=== PATIENT | female | born 1990 | race Caucasian/White ===

== ENCOUNTER 2016-11-12 18:35 | Emergency (ER) | payer OTHER ==
[~2016-11-12] VITALS: Ht 165.1 cm; Wt 63.5 kg
[2016-11-12] MEDS ORDERED: METRONIDAZOLE500 M1 PO (19:17)
[2016-11-12] MEDS ORDERED: NITROFURANTOIN100 M6 PO (19:17)
[2016-11-12] MEDS ORDERED: ALTAVERA-28 TA1 EACH PO (19:18)
[2016-11-12 19:53] LABS: ABSOLUTE BASOPHIL COUNT 0 /CUMM (0.0-0.2); ABSOLUTE EOSINOPHIL COUNT 0 /CUMM (0.0-0.7); ABSOLUTE GRANULOCYTE CT 4.7 /CUMM (1.4-6.5); ABSOLUTE LYMPH COUNT 0.9 /CUMM (1.2-3.4); ABSOLUTE MONOCYTE COUNT 0.6 /CUMM (0.10-0.60); BASOPHIL % 0.7 % (0.0-2.0); EOSINOPHIL % 0.1 % (0-5); GRANULOCYTE % 75.6 % (42.2-75.2); MEAN CORPUSCULAR HGB 29.9 PG (27.0-31.0); MEAN CORPUSCULAR HGB CONC 33.7 G/DL (33.0-37.0); MEAN CORPUSCULAR VOLUME 88.9 FL (81.0-99.0); MEAN PLATELET VOLUME 8.6 FL (7.4-10.4); PLATELET COUNT 186 /CUMM (130-400); RBC DISTRIBUTION WIDTH 13.1 % (11.5-14.5); RED BLOOD CELL CT 4.84 /CUMM (4.20-5.40); WHITE BLOOD CELL COUNT 6.3 /CUMM (4.8-10.8)
--- NOTE | 2016-11-12 20:10 | ED GI/GU/ABDOMINAL COMPLAINT ---
History of Present Illness General Chief Complaint: General Adult Stated Complaint: HEADACHE,UTI SYMPTOMS,BACK PAIN,NAUSEA Source: patient Exam Limitations: no limitations Vital Signs & Intake/Output Vital Signs & Intake/Output Vital Signs Date Time Temp Pulse Resp B/P Pulse O2 O2 Flow FiO2 Ox Delivery Rate 11/12 2227 97.8 78 18 106/61 99 Room Air 11/12 1842 98.3 97 20 112/71 99 Room Air Allergies Coded Allergies: No Known Allergies (11/12/16) Triage Note: TRIAGE: PT TO ER C/C HEADACHE, SYMPTOMS OF UTI, BACK PAIN AND NAUSEA. ONSET WITH BURNING URINARY PAIN SUNDAY. SEEN AT URGENT CARE SUNDAY. HAD URINE SPECIMEN DONE AND BLOOD TEST DONE. WAS STARTED SUNDAY ON METRONIDAZOLE BY PMD WHOM SHE SPOKE WITH ON THE PHONE REGARDING S/S. WAS STARTED ON MACROBID YESTERDAY EVENING AFTER BEING SEEN AT URGENT CARE. TAKING MACROBID PRESCRIBED. SYMPTOMS HAVE GOTTEN "A LITTLE BIT WORSE". Triage Nurses Notes Reviewed? yes ? N Is pt currently ? No HPI: This patient is a 26-year-old female who presented to the emergency department today for multiple complaints. The patient reported that on she started to notice some, "mild stinging," with urination. She denied any blood in the urine, urinary urgency, or urinary frequency. The symptoms started to get worse on Sunday. She called her primary care physician who prescribed her Flagyl. The patient reported that she then went to an urgent care center and they prescribed her a different antibiotic for UTI. The patient reported that her symptoms seem to be getting worse and now include a headache, lower back pain, and nausea. The patient denied any abdominal pain, vomiting, chest pain, difficulty breathing, constipation, or diarrhea. No fevers or chills. (NISH LOVELACE,ESTRELLA) Reconcile Medications Acyclovir 400 MG TABLET 1 TAB PO TID HSV Levonorgestrel-Ethin Estradiol (Altavera-28 Tablet) 0.15 MG-30 MCG TABLET 1 TAB PO DAILY CONTROL (Reported) Metronidazole 500 MG TABLET 1 TAB PO BID ANTIBIOTIC (Reported) Nitrofurantoin Monohyd/M-Cryst (Nitrofurantoin Cross-Mcr 100 MG) 100 MG CAPSULE 1 CAP PO BID ANTIBIOTIC (Reported) Phenazopyridine HCl (Pyridium) 200 MG TABLET 1 TAB PO TID PRN DYSURIA Sulfamethoxazole/Trimethoprim (Bactrim Ds Tablet) 800 MG-160 MG TABLET 1 TAB PO BID UTI (GREGORIO REEDER,ANNEL Pressley) Past History Travel History Traveled to [place] past 21 day No Medical History Any Pertinent Medical History? see below for history Neurological: NONE EENT: NONE Cardiovascular: NONE Respiratory: NONE Gastrointestinal: NONE Hepatic: NONE Renal: NONE Musculoskeletal: NONE Psychiatric: NONE Endocrine: NONE Blood Disorders: NONE Cancer(s): NONE DATA KEYER/Reproductive: NONE Surgical History Surgical History: non-contributory Psychosocial History What is your primary language Swedish Tobacco Use: Never used ETOH Use: occasional use Illicit Drug Use: denies illicit drug use Family History Hx Contributory? No (ESTRELLA MOCK PA-C) Review of Systems Review of Systems Constitutional: Reports: no symptoms. EENTM: Reports: no symptoms. Respiratory: Reports: no symptoms. Cardiovascular: Reports: no symptoms. GI: Reports: see HPI. Genitourinary: Reports: see HPI. Musculoskeletal: Reports: see HPI. Skin: Reports: no symptoms. Neurological/Psychological: Reports: no symptoms. All Other Systems: Reviewed and Negative (ESTRELLA MOCK PA-C) Physical Exam Physical Exam Gastrointestinal: normal bowel sounds, soft, non-tender, no organomegaly, NO REBOUND OR GUARDING. nO PERITONEAL SIGNS. nONDISTENDED Comments: Well-developed well-nourished person in no acute distress HEENT: Normal EENT exam, head normocephalic, moist mucous membranes Neck: Supple. Full range of motion Back: No CVA tenderness. Normal gait. Normal inspection. No midline tenderness Cardiovascular: Regular rate and rhythm with no murmurs Respiratory: No respiratory distress. Breath sounds clear to auscultation bilaterally Extremity: Normal and equal pulses. Neuro: Alert oriented x3, cranial nerves II through XII grossly intact. Skin: No appreciable rash on exposed skin, skin is warm and dry. Psych: Mood and affect is normal Core Measures ACS in differential dx? No Severe Sepsis Present: No Septic Shock Present: No (ESTRELLA MOCK PA-C) Progress Differential Diagnosis: AMI, appendicitis, ectopic , endometritis, ischemic bowel, intrauterine , kidney stone, ovarian cyst, ovarian torsion, PID/cervicitis, threatened AB, UTI/pyelo Plan of Care: Orders Procedure Date/time Status TRICHOMONAS 11/12 2049 Complete POTASSIUM HYDROXIDE (YEHUDA) 11/12 2049 Complete GENITAL CULTURE 11/12 2049 Active CHLAMYDIA-GC DNA PROBE 11/12 2049 Active RAPID VIRAL INFLUENZA A 11/12 1915 Complete CULTURE,URINE 11/12 1915 Active LIPASE 11/12 1915 Complete COMPREHENSIVE METABOLIC PANEL 11/12 1915 Complete CBC WITHOUT DIFFERENTIAL 11/12 1915 Complete AMYLASE 11/12 1915 Complete URINE 11/12 1901 Complete URINALYSIS 11/12 1901 Complete Laboratory Tests 11/12/16 2019: Anion Gap 6, Estimated GFR > 60, BUN/Creatinine Ratio 9.0, Glucose 90, Calcium 8.2 L, Total Bilirubin 0.5, AST 22, ALT 24, Alkaline Phosphatase 40, Total Protein 5.9 L, Albumin 3.2 L, Globulin 2.7, Albumin/Globulin Ratio 1.2, Amylase 47, Lipase 125, Urine Color YEL, Urine Clarity HAZY H, Urine pH 6.0, Ur Specific [place] 1.025, Urine Protein TRACE H, Urine Ketones TRACE H, Urine Nitrite NEG, Urine Bilirubin NEG, Urine Urobilinogen 0.2, Ur Leukocyte Esterase TRACE H, Ur Microscopic SEDIMENT EXAMINED, Urine RBC 10-15 H, Urine WBC 15-25 H, Ur Epithelial Cells MANY H, Urine Mucus PACKD H, Urine Hemoglobin SMALL H, Urine Glucose NEG, Urine Test NEGATIVE 11/12/161934: CBC w Diff NO MAN DIFF REQ, RBC 4.84, MCV 88.9, MCH 29.9, RDW 13.1, MPV 8.6, Gran % 75.6 H, Lymphocytes % 14.5 L, Monocytes % 9.1, Eosinophils % 0.1, Basophils % 0.7, Absolute Granulocytes 4.7, Absolute Lymphocytes 0.9 L, Absolute Monocytes 0.6, Absolute Eosinophils 0, Absolute Basophils 0, PUBS MCHC 33.7 Microbiology 11/12 2144 GENITAL: GC DNA Probe - RECD 11/12 2144 GENITAL: Chlamydia DNA Probe (NUSRAT) - RECD 11/12 2144 GENITAL: YEHUDA Preparation - COMP 11/12 2144 GENITAL: Trichomonas Preparation - COMP 11/12 2144 GENITAL: Genital Culture - RECD 11/12 2018 URINE ROUT: Urine Culture - RECD Diagnostic Imaging: Viewed by Me: CT Scan. Discussed w/RAD: CT Scan. Radiology Impression: PATIENT: JESS HIDALGO PRESENT AGE: 26 PATIENT ACCOUNT NO: [id number] : 89 LOCATION: [facility], [place] ORDERING PHYSICIAN: ESTRELLA MOCK PA-C SERVICE DATE: 11/12/16 EXAM TYPE: CAT - CT ABD & PELVIS W/O IV CONTRAS EXAMINATION: CT ABDOMEN AND PELVIS WITHOUT CONTRAST CLINICAL INFORMATION: Flank pain, dysuria COMPARISON: None. TECHNIQUE: Multidetector volumetric imaging was performed from the superior aspect of the liver through the pubic symphysis. Sagittal and coronal reformatted images were obtained on the technologist's workstation. DLP: 281.49 mGy-cm. FINDINGS: LUNG BASES: The visualized lung bases are unremarkable. LIVER, GALLBLADDER, AND BILIARY TREE: The liver is normal in size, shape, and attenuation. No biliary ductal dilatation is present. The gallbladder is contracted. PANCREAS: Unremarkable. SPLEEN: Unremarkable. ADRENAL GLANDS: Unremarkable. KIDNEYS AND URETERS: The kidneys are normal in size, shape, and attenuation. No hydronephrosis, hydroureter, or calculi seen. No perinephric stranding. BLADDER: The bladder is partially full. No bladder stones seen. GASTROINTESTINAL TRACT: The small and large bowel are unremarkable. The appendix is not clearly seen. ABDOMINAL WALL: No significant hernia is appreciated. VASCULAR: Unremarkable. PELVIC VISCERA: A vaginal tampon is in place. The noncontrast CT images of uterus and adnexa are unremarkable. OSSEOUS STRUCTURES: Unremarkable. IMPRESSION: No urinary stones seen. No hydronephrosis. DICTATED BY : JACKSON TRIMBLE MD DATE/TIME DICTATED:11/12/162141 HOME HEALTH CAREGIVER: DENISSE DATE/TIME TRANSCRIBED:11/12/162141 CONFIDENTIAL, DO NOT COPY WITHOUT APPROPRIATE AUTHORIZATION. <Electronically signed in Other Vendor System> SIGNED BY: JACKSON TRIMBLE MD 11/12/162157 Initial ED EKG: none Comments: 11/12/2016 8:51:01 PM: I was at the patient's bedside to update her on her laboratory studies. Definite urinary tract infection based on urinalysis. There are also 10-15 red blood cells. Based on this patient's associated flank pain, I recommended getting a CT scan of the abdomen and pelvis with no contrast to evaluate for a kidney stone. However, I also, the patient on the results of radiation. She would like to go ahead with the CT scan. The patient is now voicing a secondary complaint of bumps and burning in the vaginal region as well as watery discharge and spotting. The patient does not think that she could have been exposed to an STD, but reported that she is sexually active and would like to be tested. The patient does have a follow-up appointment with her OB/ DATA KEYER on Sunday. 11/12/2016 9:50:06 PM: I performed a vaginal speculum examination. External genitalia with multiple erythematous, raised lesions with some overlying excoriations and vesicles. Vaginal speculum examination revealed clear discharge which is thin and not adherent to the aldrich. [place] mucosa. Multiple lesions surrounding the cervical os which white. Mild amount of bleeding from the cervical os. Cervical os is closed. No cervical motion tenderness. No adnexal masses appreciated. (ESTRELLA MOCK PA-C) Departure Departure Disposition: HOME OR SELF CARE Condition: Stable Clinical Impression Primary Impression: UTI (urinary tract infection) Qualifiers: Urinary tract infection type: site unspecified Hematuria presence: with hematuria Qualified Codes: N39.0 - Urinary tract infection, site not specified; R31.9 - Hematuria, unspecified Referrals: SANDRA REEDER,MARY JO Campoverde (PCP/Family) Additional Instructions: Take Bactrim as prescribed for urinary tract infection. Take this for its full duration. Take Pyridium as prescribed for urinary burning. Please call your OB /DATA KEYER tomorrow morning to schedule a follow-up appointment. Please be sure to stay hydrated and rest. [id number] Motrin or Tylenol for headaches. Return to the emergency department for any worsening symptoms or concerns. Departure Forms: Customer Survey General Discharge Information Prescriptions: Current Visit Scripts Phenazopyridine HCl (Pyridium) 1 TAB PO TID PRN DYSURIA #9 TAB Sulfamethoxazole/Trimethoprim (Bactrim Ds Tablet) 1 TAB PO BID #14 TAB Acyclovir 1 TAB PO TID #21 TAB (ESTRELLA MOCK PA-C) PA/CLOTH DRIER Co-Sign Statement Statement: ED Attending supervision documentation- [] I saw and evaluated the patient. I have also reviewed all the pertinent lab results and diagnostic results. I agree with the findings and the plan of care as documented in the PA's/CLOTH DRIER's documentation. [X] I have reviewed the ED Record and agree with the PA's/CLOTH DRIER's documentation. [] Additions or exceptions (if any) to the PAs/CLOTH DRIER's note and plan are summarized below: [] (GREGORIO REEDER,ANNEL Pressley)
--- NOTE | 2016-11-12 21:58 | CT SCAN REPORT ---
EXAMINATION: CT ABDOMEN AND PELVIS WITHOUT CONTRAST CLINICAL INFORMATION: Flank pain, dysuria COMPARISON: None. TECHNIQUE: Multidetector volumetric imaging was performed from the superior aspect of the liver through the pubic symphysis. Sagittal and coronal reformatted images were obtained on the technologist's workstation. DLP: 281.49 mGy-cm. FINDINGS: LUNG BASES: The visualized lung bases are unremarkable. LIVER, GALLBLADDER, AND BILIARY TREE: The liver is normal in size, shape, and attenuation. No biliary ductal dilatation is present. The gallbladder is contracted. PANCREAS: Unremarkable. SPLEEN: Unremarkable. ADRENAL GLANDS: Unremarkable. KIDNEYS AND URETERS: The kidneys are normal in size, shape, and attenuation. No hydronephrosis, hydroureter, or calculi seen. No perinephric stranding. BLADDER: The bladder is partially full. No bladder stones seen. GASTROINTESTINAL TRACT: The small and large bowel are unremarkable. The appendix is not clearly seen. ABDOMINAL WALL: No significant hernia is appreciated. VASCULAR: Unremarkable. PELVIC VISCERA: A vaginal tampon is in place. The noncontrast CT images of uterus and adnexa are unremarkable. OSSEOUS STRUCTURES: Unremarkable. IMPRESSION: No urinary stones seen. No hydronephrosis.
[2016-11-12] MEDS ORDERED: ACYCLOVIR400 M1 PO (22:19)
[2016-11-12] MEDS ORDERED: PYRIDIUM200 M1 PO (22:19)
[2016-11-12] MEDS ORDERED: BACTRIM DS TAB1 EACH PO (22:19)
[2016-11-12 22:28] VITALS: BP 106/61
== END 2016-11-12 22:41 ==
LOC: ERH 18:35
PROVIDERS: Physician Assistant
DX: N39.0 Urinary tract infection, site not specified (principal); R51 Headache
CPT/HCPCS: 87070; 74176; 81001; 81025; 87086; 87491; 87591; 87804; 87804-59; 96372; 96374; 96375; J0456; J0690; J0696; J1885; J2405